=== PATIENT | female | born 1970 | race Caucasian/White ===

== ENCOUNTER 2019-08-04 07:33 | Emergency (ER) | payer BC, SELFPAY ==
[2019-08-04 07:34] VITALS: BP 128/72; PULSE 99; RESP 17; TEMP 36.8; O2SAT 100; BMI 30.9
--- NOTE | 2019-08-04 07:49 | ED.DCSUM_ITS ---
History of Present Illness Chief Complaint: Upper Extremity Injury Informant: Patient Onset: Days - 3 Timing: Continuous Current Severity: Moderate Maximum Severity: Moderate Narrative: Patient presents with right shoulder pain for the past 3 days. It is worse with movement, it is in the trapezius region but she tells me it is in the shoulder also. She has no radicular symptoms she has no known injury. She denies any chest pain shortness of breath fever or chills. She has no cough or congestion. Past Medical History - Allergies and Home Meds Allergies/Adverse Reactions: Allergies No Known Allergies Allergy (Verified 08/04/19 07:34) Primary Care Physician: Aleida Gibbons NP-C [Primary Care Provider] - Past Medical History: None Smoking Status: Never smoker Review of Systems General: Denies: Fever Cardiovascular: Denies: Chest pain, Palpitations Respiratory: Denies: Dyspnea, Cough, Sputum Gastrointestinal: Denies: Abdominal pain, Nausea Musculoskeletal: Reports: Neck pain, Extremity Pain Skin: Denies: Rash Neurological: Denies: Weakness, Parasthesia Hematologic: Denies: Easy bruising, Easy bleeding Physical Exam Vital Signs/Narrative: Vital Signs Temp Pulse Resp BP Pulse Ox 08/04/19 07:34 98.3 F 99 17 128/72 H 100 General: Well nourished, Well developed Head: Normocephalic, Atraumatic ENT: Moist mucous membranes Cardiovascular: Regular rate Respiratory: No distress Back: - - There is upper trapezius tenderness, there are a few trigger points present. This pain extends into the lower paraspinal neck region. No midline thoracic or cervical tenderness Extremities: - - Some of the pain does extend to the posterior right shoulder, however patient has no signs of impingement syndrome. She can elevate her arm above [address] it behind her back without difficulty she has minimal shoulder tenderness to palpation. Patient also has right wrist pain and she is wearing a brace. On examination she has signs and symptoms of carpal tunnel syndrome she has a positive Phalen's and Tinel signs. Skin: Normal color, No rash Neurological: Normal Strength, Normal Sensation Diagnostic/Tx/Re-eval - Medical Decision Making Patient signs and symptoms are most likely consistent with thoracic strain, I will treat her as such. She does not have any rotator cuff pathology on my examination. ED Disposition - Plan for ED Patient: Disposition: Home or Assisted Living Diagnosis: Acute thoracic myofascial strain Instructions: ED Strain Muscle Ext, ED Sprain Thoracic Spine, What Is Carpal Tunnel Syndrome (CTS)? Prescriptions: Hydrocodone/Acetaminophen [[place] 5-325 Tablet] 1 ea PO TID PRN #12 tab PRN Reason: Pain/Inflammation Prescription Printed Tizanidine HCl 4 mg PO BID PRN #20 tab PRN Reason: Muscle Spasm Transmission Status: Pending to [id number] Referrals: Aleida Gibbons NP-C [Primary Care Provider] - Sarah Sibley DO [STAFF PHYSICIAN] -
[2019-08-04] MEDS: HYDROcodone Bitartrate/Apap 5/325 Tablet PO (07:53)
== END 2019-08-04 08:19 | disposition home or self-care (01) ==
PROVIDERS: Emergency Provider Emergency Medicine; PCP Nurse Practitioner Family
DX: S29.012A Strain of muscle and tendon of back wall of thorax, initial encounter (principal); X58.XXXA Exposure to other specified factors, initial encounter; Y93.9 Activity, unspecified; Y92.9 Unspecified place or not applicable
CPT/HCPCS: 99283

== ENCOUNTER → 2024-11-03 | Outpatient (CLI) | payer OTHER, SELFPAY ==
--- NOTE | 2024-11-03 15:03 | BI_ITS ---
EXAM: SCRN MAMM (CAD)W/ROMERO BILAT DATE: 11/03/2024 CLINICAL HISTORY: F, Age 53 y/o , SCREENING TECHNIQUE: SCRN MAMM (CAD)W/ROMERO BILAT COMPARISON: Prior exam(s) dated 05/22/2011. FINDINGS: TISSUE DENSITY: There are scattered areas of fibroglandular density. Bilateral Breast Mammographic Findings: No suspicious masses, suspicious clustered microcalcifications, architectural distortion or secondary signs of malignancy is identified in either breast. Benign round microcalcifications are seen in both breast. BI/SCRN MAMM (CAD)W/ROMERO BILAT IMPRESSION: Benign screening mammogram. OVERALL FINAL ASSESSMENT BI-RADS 2: BENIGN RECOMMENDATION: Routine annual follow-up in 1 Year A letter with findings and recommendations will be mailed to the patient. Reading Location: [id number]
== END | disposition home or self-care (01) ==
LOC: OPBI 15:01
PROVIDERS: PCP Family Medicine; Referring Provider Family Medicine; Visit Provider Family Medicine
DX: Z12.31 Encounter for screening mammogram for malignant neoplasm of breast (principal)
CPT/HCPCS: 77063; 77067

== ENCOUNTER → 2024-11-10 | Outpatient (CLI) | payer OTHER, SELFPAY ==
[2024-11-13 17:08] LABS: HPV APTIMA, High Risk Negative (Negative)
== END | disposition home or self-care (01) ==
LOC: LABSPEC 16:50
PROVIDERS: PCP Family Medicine
DX: Z12.4 Encounter for screening for malignant neoplasm of cervix (principal)
CPT/HCPCS: 87624; 88175; G0145